=== PATIENT | female | born 1965 | race Caucasian/White ===

== ENCOUNTER 2022-08-25 16:45 | Outpatient (RCR) | payer MEDICAID, SELFPAY | END 2022-11-19 16:13 | disposition home or self-care (01) | PROVIDERS: Visit Provider Orthopaedic Surgery Orthopaedic Surgery of the Spine | DX: M54.2 Cervicalgia (principal); M25.60 Stiffness of unspecified joint, not elsewhere classified; M62.81 Muscle weakness (generalized); Z51.89 Encounter for other specified aftercare | CPT/HCPCS: 97110; 97140; 97161 ==

== ENCOUNTER 2023-03-17 08:29 | Outpatient (CLI) | payer OTHER, SELFPAY | END 2023-03-17 08:30 | disposition home or self-care (01) | LOC: RAD 08:30 | PROVIDERS: PCP Family Medicine; Visit Provider Family Medicine | DX: M47.816 Spondylosis without myelopathy or radiculopathy, lumbar region (principal); M51.26 Other intervertebral disc displacement, lumbar region; M54.16 Radiculopathy, lumbar region | CPT/HCPCS: 62323; J0702; Q9966 ==

== ENCOUNTER 2023-05-12 08:30 | Outpatient (CLI) | payer OTHER, SELFPAY | END 2023-05-12 08:31 | disposition home or self-care (01) | LOC: INJ CL 08:30 | PROVIDERS: PCP Family Medicine; Visit Provider Family Medicine | DX: M54.16 Radiculopathy, lumbar region (principal); M51.36 Other intervertebral disc degeneration, lumbar region | CPT/HCPCS: 62323; J0702; Q9966 ==

== ENCOUNTER 2023-08-18 09:13 | Outpatient (CLI) | payer OTHER, SELFPAY | END 2023-08-18 09:14 | disposition home or self-care (01) | LOC: INJ CL 09:14 | PROVIDERS: PCP Family Medicine; Visit Provider Family Medicine | DX: M51.26 Other intervertebral disc displacement, lumbar region (principal); M54.16 Radiculopathy, lumbar region; M51.36 Other intervertebral disc degeneration, lumbar region | CPT/HCPCS: 64483; 64484; J1100; Q9966 ==

== ENCOUNTER 2024-11-01 08:25 | Outpatient (CLI) | payer OTHER, SELFPAY | END 2024-11-01 08:26 | disposition home or self-care (01) | LOC: INJ CL 08:26 | PROVIDERS: PCP Family Medicine; Visit Provider Family Medicine | DX: M54.16 Radiculopathy, lumbar region (principal); M51.369 Other intervertebral disc degeneration, lumbar region without mention of lumbar back pain or lower extremity pain | CPT/HCPCS: 64483; 64484; J1100; Q9966 ==